=== PATIENT | male | born 1995 | race Caucasian/White ===

== ENCOUNTER 2017-08-14 11:49 | Emergency (ER) | END 2017-08-14 15:57 | disposition home or self-care (01) ==

== ENCOUNTER 2018-09-20 12:22 | Emergency (ER) | payer MEDICAID, OTHER ==
[~2018-09-20] VITALS: Ht 167.6 cm; Wt 72.8 kg
[~2018-09-20 12:22] MED LIST: LORA-441 PO
[2018-09-20 12:30] VITALS: BP 99/65; PULSE 89; RESP 20; Ht 167.6 cm; Wt 72.8 kg
[2018-09-20] MEDS ORDERED: LORA1TAB PO (16:19)
--- NOTE | 2018-09-20 16:28 | ERD ---
ER Documentation Chief Complaint Chief Complaint Complain sof anxiety x 1 week unable to sleep and SOB HPI 23-year-old male presents with history of anxiety for the past week. States that he wakes up feeling very panicky. States that he had this 1 time about 6 years ago and he was given short course of medication which seemed to help him. He does not recall any specific event which triggered the anxiety this time. Denies any chest pain, fevers, shortness of breath. Denies medical problems. Denies allergies. ROS All systems reviewed and are negative except as per history of present illness. Medications Home Meds Active Scripts Lorazepam* (Lorazepam*) 1 Mg Tablet, 1 MG PO Q8H PRN for ANXIETY, #10 TAB Prov:ELÍAS GAN 09/20/18 Lorazepam* (Ativan*) 0.5 Mg Tablet, 0.5 MG PO Q8, #10 TAB Prov:ORESTES HERNADEZ MD 08/14/17 Allergies Allergies: Coded Allergies: No Known Allergy (Unverified , 08/14/17) PMhx/Soc Medical and Surgical Hx: pt denies Medical Hx, pt denies Surgical Hx Hx Alcohol Use: Yes (weekly) Hx Substance Use: No Hx Tobacco Use: Yes (10 cigarettes/daily) Smoking Status: Current every day smoker FmHx Family History: No diabetes, No coronary disease, No other Physical Exam Vitals Vital Signs Date Temp Pulse Resp B/P (MAP) Pulse Ox O2 O2 Flow FiO2 Time Delivery Rate 09/20/18 98.1 89 20 99/65 (76) 100 12:30 Physical Exam Const: No acute distress Head: Atraumatic Eyes: Normal Conjunctiva ENT: Normal External Ears, Nose and Mouth. Neck: Full range of motion. No meningismus. Resp: Clear to auscultation bilaterally Cardio: Regular rate and rhythm, no murmurs Abd: Soft, non tender, non distended. Normal bowel sounds Skin: No petechiae or rashes Back: No midline or flank tenderness Ext: No cyanosis, or edema Neur: Awake and alert Psych: Normal Mood and Affect Procedures/MDM Patient's presentation is consistent with acute anxiety. Patient was advised that this needs to be followed up on outpatient basis. Patient was given a list of community clinics as he said he does not have a primary care provider. I have low suspicion for arrhythmia, PR, thyroid storm, or acute psychosis. Patient given short course of Ativan for sleep. Patient discharged with strict ER precautions. Patient advised to follow up with PMD. All questions answered at discharge. Departure Diagnosis: Primary Impression: Anxiety Condition: Stable Patient Instructions: Your Body's Response to Anxiety, Treating Anxiety Disorders with Therapy, What Is Insomnia?, Treating Insomnia, Anxiety Reaction, Insomnia Referrals: COMMUNITY CLINICS YOU HAVE RECEIVED A MEDICAL SCREENING EXAM AND THE RESULTS INDICATE THAT YOU DO NOT HAVE A CONDITION THAT REQUIRES URGENT TREATMENT IN THE EMERGENCY DEPARTMENT. FURTHER EVALUATION AND TREATMENT OF YOUR CONDITION CAN WAIT UNTIL YOU ARE SEEN IN YOUR DOCTORS OFFICE WITHIN THE NEXT 1-2 DAYS. IT IS YOUR RESPONSIBILITY TO MAKE AN APPOINTMENT FOR FOLOW-UP CARE. IF YOU HAVE A PRIMARY DOCTOR --you should call your primary doctor and schedule an appointment IF YOU DO NOT HAVE A PRIMARY DOCTOR YOU CAN CALL OUR PHYSICIAN REFERRAL HOTLINE AT IF YOU CAN NOT AFFORD TO SEE A PHYSICIAN YOU CAN CHOSE FROM THE FOLLOWING [facility] CLINICS [facility] [address] [facility] [address] [employer] [facility] [address] [facility] [address] [facility] [address] [facility]. [facility]. [address] Additional Instructions: FOLLOW UP WITH YOUR PRIMARY CARE PHYSICIAN TOMORROW.Return to this facility if you are not improving as expected. ELÍAS GAN Sep 20, 2018 16:28
== END 2018-09-20 17:10 | disposition home or self-care (01) ==
LOC: FTE 12:22
DX: F41.9 Anxiety disorder, unspecified (principal); F17.210 Nicotine dependence, cigarettes, uncomplicated
CPT/HCPCS: 99283